=== PATIENT | female | born 1945 | race Caucasian/White ===

== ENCOUNTER 2019-05-19 00:50 | Emergency (ER) | payer MEDICARE, OTHER ==
[2019-05-19] MEDS ORDERED: NS(*) 0.9% 1000 ML BAG 1,000 ML IV ONE (01:09)
--- NOTE | 2019-05-19 01:09 | ER Report ---
History and Physical Time Seen By MD: 00:47 HPI/ROS CHIEF COMPLAINT: Right flank pain HISTORY OF PRESENT ILLNESS: 73-year-old female on vacation from [place], [place]. Patient began having right flank pain, onset 2 hours prior to arrival. She notes a mild nausea but no vomiting. She's had no diarrhea. She notes no dysuria or hematuria. Patient status post hysterectomy and appendectomy. Patient notes no chest pain or shortness of breath. She notes no alleviating or exacerbating factors. She notes onset of her back pain when she bent over to bead picker her bag of pills. She notes aggravation with movement of her back and lying on her right side. Patient took a muscle relaxant tizanidine and a pain pill tramadol without improvement of her symptoms prior to coming to the emergency department. REVIEW OF SYSTEMS: Respiratory: No cough, no dyspnea. Cardiovascular: No chest pain, no palpitations. Gastrointestinal: As above Musculoskeletal: No back pain. Allergies: Coded Allergies: Penicillins (Verified Allergy, Unknown, 05/19/19) Home Meds Active Scripts Hydrocodone Bit/Acetaminophen (HYDROCODON-ACETAMINOPHEN 5-325) 1 Each Tablet, 1- 2 EACH PO Q4-6H PRN for PAIN, #15 TAKE ONE TABLET BY MOUTH EVERY 4-6 HOURS NEEDED FOR PAIN Prov:DEANN SINGH DO 05/19/19 Ondansetron 4 Mg Odt (ONDANSETRON 4 MG ODT) 4 Mg Tab.rapdis, 4 MG PO Q6H PRN for NAUSEA/VOMITING, #12 TAB Prov:DEANN SINGH DO 05/19/19 Reported Medications Guaifenesin/Dextromethorphan (MUCINEX DM ER 600-30 MG TABLET) 1 Each Tab.er.12h, 1 EACH PO DAILY 05/19/19 Mirtazapine (MIRTAZAPINE) 15 Mg Tablet, 15 MG PO HS 05/19/19 Donepezil Hcl (DONEPEZIL HCL) 10 Mg Tablet, 10 MG PO HS, TAB 05/19/19 Mirabegron (MYRBETRIQ) 50 Mg Tab.er.24h, 50 MG PO DAILY 05/19/19 Ropinirole Hcl (ROPINIROLE HCL) 1 Mg Tablet, 1 MG PO TID 05/19/19 Gabapentin (GABAPENTIN) 300 Mg Capsule, 600 MG PO TID, CAPSULE 05/19/19 Tizanidine Hcl (TIZANIDINE HCL) 2 Mg Tablet, 2 MG PO TID 05/19/19 Trazodone Hcl (TRAZODONE HCL) 50 Mg Tablet, 50 MG PO QHS 05/19/19 [ketogreen] No Conflict Check, 3 TAB PO DAILY 05/19/19 Melatonin (MELATONIN) 10 Mg Tablet, 10 MG PO HS 05/19/19 Reviewed Nurses Notes: Yes Old Medical Records Reviewed: Yes Constitutional Vital Sign - Last 24 Hours 05/19/19 05/19/19 05/19/19 05/19/19 00:56 01:00 01:30 02:00 Temp 98.1 Pulse 85 82 60 62 Resp 16 B/P (MAP) 190/66 177/79 (111) 153/68 (96) 156/80 (105) Pulse Ox 93 93 87 97 O2 Delivery Room Air 05/19/19 05/19/19 05/19/19 02:30 03:00 03:30 Pulse 69 68 70 B/P (MAP) 170/76 (107) 150/75 (100) 146/71 (96) Pulse Ox 98 98 98 Intake and Output 05/18/19 05/18/19 05/19/19 15:03 23:03 07:03 Intake Total 1000 ml Balance 1000 ml Physical Exam Vital signs stable, afebrile, blood pressure elevated, pulse ox normal General Appearance: The patient is alert, has no immediate need for airway protection and no current signs of toxicity. Slightly pale appearing, skin warm and dry Eyes: Pupils equal and round no injection. Respiratory: Chest is non tender, lungs are clear to auscultation. Cardiac: regular rate and rhythm Gastrointestinal: Abdomen is soft and non tender, no masses, bowel sounds normal. No CVA tenderness Musculoskeletal: Neck: Neck is supple and non tender. Extremities have full range of motion and are non tender. Skin: No rashes or lesions. DIFFERENTIAL DIAGNOSIS: After history and physical exam differential diagnosis was considered for abdominal pain including but not limited to appendicitis, cholecystitis, gastritis and urinary tract infection. Additionally,flank pain including but not limited to musculoskeletal causes, kidney stone, pyelonephritis, shingles, and intra-abdominal causes such as diverticulitis and appendicitis. Medical Decision Making Data Points Result Diagram: 05/19/19 0100 05/19/19 010 Laboratory Hematology Test 05/19/19 01:00 White Blood Count 7.7 k/uL (4.5-11.0) Red Blood Count 4.44 M/uL (4.17-5.56) Hemoglobin 14.6 g/dL (12.0-16.0) Hematocrit 41.9 % (34.0-47.0) Mean Corpuscular Volume 94.3 fL (80.0-96.0) Mean Corpuscular Hemoglobin 32.8 pg (26.0-33.0) Mean Corpuscular Hemoglobin Concent 34.7 g/dL (32.0-36.0) Red Cell Distribution Width 13.8 % (11.5-14.5) Platelet Count 190 K/uL (150-450) Mean Platelet Volume 9.8 fL (7.2-11.1) Neutrophils (%) (Auto) 53.9 % (39.4-72.5) Lymphocytes (%) (Auto) 31.3 % (17.6-49.6) Monocytes (%) (Auto) 11.5 % (4.1-12.4) Eosinophils (%) (Auto) 2.5 % (0.4-6.7) Basophils (%) (Auto) 0.8 % (0.3-1.4) Nucleated RBC Relative Count (auto) 0.2 /100WBC Neutrophils # (Auto) 4.1 K/uL (2.0-7.4) Lymphocytes # (Auto) 2.4 K/uL (1.3-3.6) Monocytes # (Auto) 0.9 K/uL (0.3-1.0) Eosinophils # (Auto) 0.2 K/uL (0.0-0.5) Basophils # (Auto) 0.1 K/uL (0.0-0.1) Nucleated RBC Absolute Count (auto) 0.01 K/uL Chemistry Test 05/19/19 01:00 Sodium Level 139 mmol/L (137-145) Potassium Level 2.9 mmol/L (3.5-5.0) Chloride Level 101 mmol/L (98-107) Carbon Dioxide Level 26 mmol/L (22-31) Blood Urea Nitrogen 8 mg/dl (7-18) Creatinine 0.90 mg/dl (0.52-1.04) Glomerular Filtration Rate Calc > 60.0 Random Glucose 155 mg/dl (75-110) Calcium Level 9.2 mg/dl (8.4-10.2) Total Bilirubin 0.4 mg/dl (0.2-1.3) Aspartate Amino Transf (AST/SGOT) 57 U/L (0-35) Alanine Aminotransferase (ALT/SGPT) 55 U/L (0-56) Alkaline Phosphatase 122 U/L (0-126) Troponin I < 0.012 ng/ml Total Protein 7.7 g/dl (6.3-8.2) Albumin 4.3 g/dl (3.5-5.0) Amylase Level 73 U/L (0-110) Lipase 220 U/L (23-300) Coagulation Test 05/19/19 01:00 Prothrombin Time 12.5 seconds (12.0-14.4) Prothromb Time International Ratio 0.93 Activated Partial Thromboplast Time 27 seconds (23-35) Urinalysis Test 05/19/19 00:00 Urine Color Yellow Urine Clarity Clear Urine pH 5.0 pH (4.8-9.5) Urine Specific [place] 1.012 Urine Protein Negative mg/dL (NEGATIVE) Urine Glucose (UA) Negative mg/dL (NEGATIVE) Urine Ketones Negative mg/dL (NEGATIVE) Urine Blood Negative (NEGATIVE) Urine Nitrite Negative (NEGATIVE) Urine Bilirubin Negative (NEGATIVE) Urine Urobilinogen Negative mg/dL (0.2-1.9) Urine Leukocyte Esterase Trace (NEGATIVE) Urine RBC 1 /HPF (0-2/HPF) Urine WBC 3 /HPF (0-5/HPF) Urine Squamous Epithelial Cells Few /LPF (</=FEW) Urine Bacteria Negative /HPF (NONE-FEW) Urine Hyaline Casts Few /LPF (NONE-FEW) Urine Mucus Few /HPF (NONE-FEW) EKG/Imaging EKG Interpretation 12 lead EK Rhythm: normal sinus rhythm [place]: normal QRS: normal ST segments: normal, no evidence of ischemia, no old EKGs for comparison Imaging Results: CT scan of the CTA chest, abdomen and pelvis was obtained. The results of the study are CTA CHEST, ABDOMEN AND PELVIS DATE OF EXAM: 05/19/2019 1:54 AM. INDICATION: Severe right flank and back pain. COMPARISON: None. TECHNIQUE: Contrast enhanced and noncontrast chest, abdomen and pelvis CT. The patient received 75 ml of Isovue 370. Sagittal and coronal reconstructions were performed, as well as coronal 3D/MIP reconstructions. One of the following dose optimization techniques was utilized in the performance of this exam: Automated exposure control; adjustment of the mA and/or kV according to the patient's size; or use of an iterative reconstruction technique. Specific details can be referenced in the facility's radiology CT exam operational policy. FINDINGS: Angiographic findings: Nonaneurysmal aorta with mild atherosclerosis. No dissection. Branch vessels are widely patent. CHEST: Thyroid: Normal. Thoracic inlet: No adenopathy. Heart and pulmonary arteries: Heart size is normal. No pericardial effusion. Pulmonary arteries are unremarkable. Mediastinum and kamari: Nonacute. No adenopathy. Lungs and pleura: Minimal scarring/atelectasis. Breast and axilla: No adenopathy. ABDOMEN AND PELVIS: Liver and hepatic vasculature: No suspicious focal lesion. Slightly increased attenuation along the gallbladder fossa. Gallbladder and bile ducts: The gallbladder is distended. It contains a large lamellated calculus near the fundus measuring 4.0 cm in diameter. There is an additional calculus that may be impacted in the neck measuring 1.3 cm in diameter. Bile ducts are unremarkable. Spleen: Normal. Pancreas: Normal. Adrenals: Normal. Kidneys, ureters and bladder: Normal. Retroperitoneum: Nonacute. No adenopathy. GI tract, mesentery and peritoneum: Nonacute. The appendix is not visualized, question appendectomy. Moderate sigmoid diverticulosis. Uterus and adnexa: Hysterectomy. Bones and soft tissues: No acute abnormality or suspicious lesion. L3-L5 fusion. Remote appearing mild compression deformity of T12. Implanted purification director in the left anterior chest wall. IMPRESSION: 1. Nonacute nonaneurysmal aorta with mild atherosclerosis. 2. Distended gallbladder containing at least 2 calculi, one of which may be impacted in the neck. Given reported right-sided pain, cholecystitis is a consideration. Correlate with clinical suspicion. Ultrasound may be of limited benefit for further evaluation. HIDA scan could be performed to evaluate for cystic duct obstruction. 3. Moderate sigmoid diverticulosis. The study was read by the radiologist. I viewed the images myself on the PACS system. ED Course/Re-evaluation Clinical Indication for ER IV: IV Access ED Course Patient was admitted to an examination room. H&P was done. The differential diagnoses was considered. Patient with severe flank and back pain. She has sudden onset 11 PM. Patient notes it may be aggravated by musculoskeletal movement. Diagnostic evaluation is ordered. Patient's laboratory studies ret urned unremarkable. Her EKG is negative. Her troponin is negative. Patient's treated with IV Zofran and fentanyl. Patient has improvement of her pain, but is still persistent. A CTA scan is ordered to rule out aortic dissection. CT scan is negative for obvious vascular abnormality. There is evidence of cholecystitis. Patient would like to return home to [place], [place] to have her gallbladder removed by her local surgeon. Patient was offered the option of having a surgical consultation here. She is discharged on Zofran and Lortab. She is advised clear liquid diet, advancing to Gabrielle diet as tolerated. She is advised to avoid all fatty or greasy food. Patient's advised to go to the nearest ER for any worsening. Decision to Disposition Date: May 19, 2019 Decision to Disposition Time: 03:44 Depart Departure Latest Vital Signs Vital Signs Date Time Temp Pulse Resp B/P (MAP) Pulse Ox O2 Delivery O2 Flow Rate FiO2 05/19/19 03:30 70 146/71 (96) 98 05/19/19 00:56 98.1 16 Room Air Impression: Primary Impression: Cholecystitis Additional Impression: Hypokalemia Condition: Improved Disposition: HOME OR SELF-CARE New Scripts Hydrocodone Bit/Acetaminophen (HYDROCODON-ACETAMINOPHEN 5-325) 1 Each Tablet 1-2 EACH PO Q4-6H PRN for PAIN, #15 TAKE ONE TABLET BY MOUTH EVERY 4-6 HOURS NEEDED FOR PAIN Prov: DEANN SINGH DO 05/19/19 Ondansetron 4 Mg Odt (ONDANSETRON 4 MG ODT) 4 Mg Tab.rapdis 4 MG PO Q6H PRN for NAUSEA/VOMITING, #12 TAB Prov: DEANN SINGH DO 05/19/19 Patient Instructions: Cholecystitis (ED), Clear Liquid Diet (ED) Additional Instructions: Follow clear liquid diet for 24 hours, then advance to Gabrielle diet as tolerated Avoid fatty food, greasy foods, vegetables, and dairy. Go to the nearest ER for any worsening, especially uncontrolled vomiting, severe pain or fever. Problem Qualifiers DEANN SINGH DO May 19, 2019 01:09
[2019-05-19] MEDS ORDERED: ONDANSETRON 4 MG/2 ML VIAL IVP ONE (01:10)
[2019-05-19] MEDS ORDERED: fentaNYL CITR 100 MCG/2 ML AMP IVP ONE ×2 (01:10)
[2019-05-19] MEDS ORDERED: [UNRECOGNIZED DRUG - OTHER] PO (01:14)
[2019-05-19] MEDS ORDERED: GUAI-648 PO (01:14)
[2019-05-19] MEDS ORDERED: MELA10TA2 PO (01:14)
[2019-05-19] MEDS ORDERED: TIZA-1 PO (01:14)
[2019-05-19] MEDS ORDERED: DONE10TA38 PO (01:14)
[2019-05-19] MEDS ORDERED: MIRT-22 PO (01:14)
[2019-05-19] MEDS ORDERED: TRAZ50TA52 PO (01:14)
[2019-05-19] MEDS ORDERED: ROPI1TAB36 PO (01:14)
[2019-05-19] MEDS ORDERED: MIRA50TA PO (01:14)
[2019-05-19] MEDS ORDERED: GABA-549 PO (01:14)
[2019-05-19 01:19] LABS: PLATELET COUNT, AUTOMATED 190 K/uL (150-450)
[2019-05-19 01:25] LABS: INR 0.93
[2019-05-19] MEDS ORDERED: NS(*) 0.9% 50 ML BAG 50 ML ONE (02:10)
[2019-05-19] MEDS ORDERED: IOPAMIDOL 76% 100 ML INFUS BTL 100 ML ONE (02:10)
[2019-05-19] MEDS ORDERED: HYDROMORPHONE HCL 1 MG/ML SYRINGE IVP ONE (02:40)
--- NOTE | 2019-05-19 03:24 | RADIOLOGY IMAGING REPORT ---
FACILITY: [facility] PATIENT NAME: Steph Banda : 1945 MR: [id number] V: [id number] EXAM DATE: [id number] ORDERING PHYSICIAN: DEANN SINGH TECHNOLOGIST: Location: [facility] Patient: Steph Banda : 1945 Visit/Account:[id number] Date of Sevice: 05/19/2019 CTA CHEST, ABDOMEN AND PELVIS DATE OF EXAM: 05/19/2019 1:54 AM. INDICATION: Severe right flank and back pain. COMPARISON: None. TECHNIQUE: Contrast enhanced and noncontrast chest, abdomen and pelvis CT. The patient received 75 m l of Isovue 370. Sagittal and coronal reconstructions were performed, as well as coronal 3D/MIP shauna nstructions. One of the following dose optimization techniques was utilized in the performance of th is exam: Automated exposure control; adjustment of the mA and/or kV according to the patient's size; or use of an iterative reconstruction technique. Specific details can be referenced in the facility 's radiology CT exam operational policy. FINDINGS: Angiographic findings: Nonaneurysmal aorta with mild atherosclerosis. No dissection. Branch vessels are widely patent. CHEST: Thyroid: Normal. Thoracic inlet: No adenopathy. Heart and pulmonary arteries: Heart size is normal. No pericardial effusion. Pulmonary arteries ar e unremarkable. Mediastinum and kamari: Nonacute. No adenopathy. Lungs and pleura: Minimal scarring/atelectasis. Breast and axilla: No adenopathy. ABDOMEN AND PELVIS: Liver and hepatic vasculature: No suspicious focal lesion. Slightly increased attenuation along the gallbladder fossa. Gallbladder and bile ducts: The gallbladder is distended. It contains a large lamellated calculus n ear the fundus measuring 4.0 cm in diameter. There is an additional calculus that may be impacted in the neck measuring 1.3 cm in diameter. Bile ducts are unremarkable. Spleen: Normal. Pancreas: Normal. Adrenals: Normal. Kidneys, ureters and bladder: Normal. Retroperitoneum: Nonacute. No adenopathy. GI tract, mesentery and peritoneum: Nonacute. The appendix is not visualized, question appendectomy . Moderate sigmoid diverticulosis. Uterus and adnexa: Hysterectomy. Bones and soft tissues: No acute abnormality or suspicious lesion. L3-L5 fusion. Remote appearing mild compression deformity of T12. Implanted shag truck driver in the left anterior chest wall. IMPRESSION: 1. Nonacute nonaneurysmal aorta with mild atherosclerosis. 2. Distended gallbladder containing at least 2 calculi, one of which may be impacted in the neck. Kim douglass reported right-sided pain, cholecystitis is a consideration. Correlate with clinical suspicion. Ultrasound may be of limited benefit for further evaluation. HIDA scan could be performed to evalu ate for cystic duct obstruction. 3. Moderate sigmoid diverticulosis. Report Dictated By: Erick Mata MD at 05/19/2019 2:56 AM Report E-Signed By: Erick Mata MD at 05/19/2019 3:12 AM WSN:[id number]
[2019-05-19 03:30] VITALS: BP 146/71
--- NOTE | 2019-05-19 03:35 | EKG ---
FACILITY: [facility] [place] PATIENT NAME: BRANDIE SCHRADER : [id number] MR: [id number] V: [id number] EXAM DATE: ORDERING PHYSICIAN: DEANN SINGH TECHNOLOGIST: ROSE MARIE Test Reason : ABDOM. PAIN Blood Pressure : / mmHG Vent. Rate : 067 BPM Atrial Rate : 067 BPM P-R Int : 168 ms QRS Dur : 084 ms QT Int : 432 ms P-R-T Axes : 039 061 054 degrees QTc Int : 456 ms Sinus rhythm Possible left atrial enlargement Nonspecific ST findings inferior leads No previous ECGs available Confirmed by SHASHA MUNOZ ([id number] on 05/19/2019 6:21:10 AM Referred By: FRANCISCO Confirmed By:SHASHA MUNOZ
[2019-05-19] MEDS ORDERED: KETOROLAC 30 MG/ML VIAL IVP ONE (03:45)
[2019-05-19] MEDS ORDERED: ACET/HYDROC 5/325MG TH ER ONLY 2 TAB/BOTTLE PO ONE (03:45)
[2019-05-19] MEDS ORDERED: ONDANSETRON 4 MG ODT TH SL ONE (03:45)
[2019-05-19] MEDS ORDERED: ONDA4TAB9 PO (03:51)
[2019-05-19] MEDS ORDERED: LOR5/325 PO (03:51)
== END 2019-05-19 04:02 | disposition home or self-care (01) ==
LOC: ER 00:53
DX: K81.9 Cholecystitis, unspecified (principal); E87.6 Hypokalemia; K57.30 Diverticulosis of large intestine without perforation or abscess without bleeding; R10.9 Unspecified abdominal pain
CPT/HCPCS: 71275; 74174; 81001; 82150; 83690; 84484; 85025; 85610; 85730; 93005; 96361; 96374; 96375; 99284; J1170; J1885; J2405; J3010; J7030; J7050; Q0162; Q9967; 82040; 82247; 82310; 82374; 82435; 82565; 82947; 84075; 84132; 84155; 84295; 84450; 84460; 84520; S0119